=== PATIENT | male | born 1950 | race African-American/Black ===

== ENCOUNTER 2019-08-17 16:46 | Inpatient (IN) ==
[2019-08-17] MEDS ORDERED: methylPREDNISolone 125 MG/2 ML VIAL IVP ONE (16:55)
[2019-08-17] MEDS ORDERED: Ipratropium/Albuterol Neb 3 ML IH ONE (16:55)
[2019-08-17] MEDS ORDERED: Isovue-370 500 ML BOTTLE IVP ONE (16:55)
[2019-08-17 17:31] LABS: Basophils # 0.1 K/mcL (0.0-0.2); Basophils % 1.1 %; Eosinophils # 0.7 K/mcL (0.0-0.6); Eosinophils % 9.4 %; Hematocrit 42.4 % (37.5-50.1); Hemoglobin 12.7 g/dL (12.9-16.9); Immature Granulocytes % 0.1 % (0-4); Lymphocytes # 1.6 K/mcL (0.6-4.6); Lymphocytes % 23.4 %; Mean Corpuscular Hemoglobin 29.5 pg (28.0-33.3); Mean Corpuscular Volume 98.6 fL (83.0-100.0); Mean Platelet Volume 10.9 fL (9.4-12.4); Monocytes # 0.6 K/mcL (0.0-1.3); Neutrophils # 4.1 K/mcL (1.6-8.9); Platelet Count 218 K/mcL (140-400); Red Cell Distribution Width 13.2 % (11.5-14.5)
[2019-08-17 17:57] LABS: BUN/Creatinine Ratio 24 (6-26); Blood Urea Nitrogen 17 mg/dL (8-23); Calcium 9.8 mg/dL (8.6-10.3); Carbon Dioxide 30 mEq/L (23-29); Chloride 99 mEq/L (98-107); Glucose 102 mg/dL (70-105); Osmolality,Calculated 292 (280-300); Potassium 4.2 mEq/L (3.5-5.1); Sodium 140 mEq/L (136-145); Troponin I < 0.03 ng/mL (< 0.04); eGFR For African Americans > 60 (> 60); eGFR For Non-African Americans > 60 (> 60)
[2019-08-17] MEDS ORDERED: Albuterol 2.5 MG/3 ML NEBULIZER IH ONE (19:20)
[2019-08-17] MEDS ORDERED: Naloxone 0.4 MG/ML INJ IVP PRN (19:55)
[2019-08-17] MEDS: Doxycycline 100 MG in 0.9 % Sodium Chloride Mini Bag 100 ML IVPB SCH (22:01)
[2019-08-17] MEDS: *HR* Heparin 5,000 UNIT/ML VIAL SQ SCH (22:01)
[2019-08-17] MEDS: traZODone 50 MG TABLET PO SCH (22:02)
[2019-08-17] MEDS: (Lactose-Reduced Food [Ensure Plus] 1 BOTTLE) PO SCH (22:03)
[2019-08-17] MEDS: Ipratropium/Albuterol Neb 3 ML IH SCH (22:21)
[2019-08-17] MEDS: MethylPREDNISolone 40 MG/ML VIAL IVP SCH (23:34)
[2019-08-18] MEDS: Ipratropium/Albuterol Neb 3 ML IH SCH ×7 (00:06→23:47)
[2019-08-18 00:37] LABS: Bilirubin,Urine Negative (Negative); Blood,Urine Negative (Negative); Clarity,Urine Turbid (Clear); Color,Urine Yellow (Yellow); Glucose,Urine (UA) Normal (Normal); Ketones,Urine Negative (Negative); Leukocyte Esterase,Urine Negative (Negative); Nitrite,Urine Negative (Negative); PH,Urine 5.5 pH Units (5.0-8.0); Protein,Urine Negative (Neg-Trace); Specific Gravity,Urine > 1.030 (1.010-1.025); Urobilinogen,Urine Normal (Normal)
[2019-08-18 00:39] LABS: Bacteria,Urine None Seen per hpf (None-Few); Hyaline Casts,Urine None Seen per lpf (None-Few); RBC,Urine 0-3 per hpf (0-3); Squamous Epithelial Cell,Urine Moderate per lpf (None-Few); WBC,Urine 0-3 per hpf (0-3)
[2019-08-18 01:29] LABS: Adenovirus Not Detected (Not Detect); Bordetella Pertussis Not Detected (Not Detect); Chlamydophila pneumoniae Not Detected (Not Detect); Coronavirus 229E Not Detected (Not Detect); Coronavirus HKU1 Not Detected (Not Detect); Coronavirus NL63 Not Detected (Not Detect); Coronavirus OC43 Not Detected (Not Detect); Human Metapneumovirus Not Detected (Not Detect); Human Rhinovirus/Enterovirus Not Detected (Not Detect); Influenza A Subtype 2009 H1 Not Detected (Not Detect); Influenza B Not Detected (Not Detect); Mycoplasma pneumoniae Not Detected (Not Detect); Parainfluenza Virus 1 Not Detected (Not Detect); Parainfluenza Virus 2 Not Detected (Not Detect); Parainfluenza Virus 3 Not Detected (Not Detect); Parainfluenza Virus 4 Not Detected (Not Detect); Respiratory Syncytial Virus Not Detected (Not Detect)
[2019-08-18 04:26] LABS: INR 1.3; Prothrombin Time 14.6 Seconds (9.4-12.1)
[2019-08-18 04:29] LABS: Activated Partial Thrombo Time 33.5 Seconds (26.0-36.0)
[2019-08-18 04:30] LABS: Basophils % 0.2 %; Eosinophils % 0.2 %; Hematocrit 40.6 % (37.5-50.1); Hemoglobin 12.1 g/dL (12.9-16.9); Immature Granulocytes % 0.2 % (0-4); Lymphocytes # 0.5 K/mcL (0.6-4.6); Lymphocytes % 9.5 %; Mean Corpuscular HGB Conc 29.8 g/dL (31.6-35.5); Mean Corpuscular Hemoglobin 29.2 pg (28.0-33.3); Mean Corpuscular Volume 98.1 fL (83.0-100.0); Mean Platelet Volume 11.1 fL (9.4-12.4); Monocytes # 0.1 K/mcL (0.0-1.3); Monocytes % 1.3 %; Neutrophils # 4.7 K/mcL (1.6-8.9); Platelet Count 230 K/mcL (140-400); Red Blood Count 4.14 M/mcL (4.19-5.50); Red Cell Distribution Width 13.1 % (11.5-14.5); Segmented Neutrophils % 88.6 %; White Blood Count 5.3 K/mcL (4.3-11.1)
[2019-08-18 04:49] LABS: Alanine Aminotransferase 9 Units/L (7-52); Albumin 4.2 g/dL (3.5-5.7); Albumin/Globulin Ratio 1.1 (1.1-2.2); Alkaline Phosphatase 55 Units/L (34-104); Aspartate Amino Transferase 13 Units/L (13-39); BUN/Creatinine Ratio 20 (6-26); Bilirubin,Total 0.8 mg/dL (0.3-1.0); Blood Urea Nitrogen 13 mg/dL (8-23); Calcium 9.9 mg/dL (8.6-10.3); Carbon Dioxide 26 mEq/L (23-29); Chloride 100 mEq/L (98-107); Chol/HDL Ratio 2.5 (0-4.9); Cholesterol 147 mg/dL (< 200); Glucose 160 mg/dL (70-105); HDL Cholesterol 58 mg/dL (40-59); LDL Cholesterol,Calculated 83 mg/dL (0-99); Magnesium 1.8 mg/dL (1.6-2.6); Osmolality,Calculated 284 (280-300); Phosphorous 2.6 mg/dL (2.7-4.5); Potassium 4.4 mEq/L (3.5-5.1); Sodium 135 mEq/L (136-145); Total Protein 8.2 g/dL (6.4-8.9); Triglycerides 30 mg/dL (< 150); eGFR For African Americans > 60 (> 60); eGFR For Non-African Americans > 60 (> 60)
[2019-08-18] MEDS: *HR* Heparin 5,000 UNIT/ML VIAL SQ SCH ×3 (06:02→22:27)
[2019-08-18] MEDS: Doxycycline 100 MG in 0.9 % Sodium Chloride Mini Bag 100 ML IVPB SCH ×2 (06:03→16:58)
[2019-08-18] MEDS: Lisinopril-HCTZ 20-12.5mg TABLET PO SCH (07:27)
[2019-08-18] MEDS: Cholecalciferol (D-3) 1,000 UNIT (25MCG) TABLET PO SCH (07:27)
[2019-08-18] MEDS: MethylPREDNISolone 40 MG/ML VIAL IVP SCH ×2 (07:27→16:58)
[2019-08-18] MEDS: (Lactose-Reduced Food [Ensure Plus] 1 BOTTLE) PO SCH ×2 (07:27→14:40)
[2019-08-18] MEDS: Venlafaxine XR (24 HR) 75 MG CAP.ER.24H PO SCH (07:27)
[2019-08-18] MEDS: Benzonatate 100 MG CAPSULE PO PRN (11:26)
[2019-08-18] MEDS: traZODone 50 MG TABLET PO SCH (20:11)
[2019-08-19] MEDS: MethylPREDNISolone 40 MG/ML VIAL IVP SCH ×4 (00:30→23:56)
[2019-08-19] MEDS: Ipratropium/Albuterol Neb 3 ML IH SCH ×3 (03:14→11:24)
[2019-08-19 05:18] LABS: Eosinophils % 0.1 %; Hematocrit 39.9 % (37.5-50.1); Hemoglobin 12.2 g/dL (12.9-16.9); Immature Granulocytes % 0.2 % (0-4); Lymphocytes # 0.5 K/mcL (0.6-4.6); Lymphocytes % 5.7 %; Mean Corpuscular HGB Conc 30.6 g/dL (31.6-35.5); Mean Corpuscular Volume 94.8 fL (83.0-100.0); Mean Platelet Volume 11.8 fL (9.4-12.4); Monocytes # 0.1 K/mcL (0.0-1.3); Monocytes % 0.9 %; Neutrophils # 8.1 K/mcL (1.6-8.9); Platelet Count 233 K/mcL (140-400); Red Blood Count 4.21 M/mcL (4.19-5.50); Red Cell Distribution Width 13.2 % (11.5-14.5); Segmented Neutrophils % 93.1 %; White Blood Count 8.7 K/mcL (4.3-11.1)
[2019-08-19 05:40] LABS: BUN/Creatinine Ratio 27 (6-26); Blood Urea Nitrogen 17 mg/dL (8-23); Calcium 9.8 mg/dL (8.6-10.3); Carbon Dioxide 29 mEq/L (23-29); Chloride 100 mEq/L (98-107); Glucose 193 mg/dL (70-105); Osmolality,Calculated 285 (280-300); Potassium 4.1 mEq/L (3.5-5.1); Sodium 134 mEq/L (136-145); eGFR For African Americans > 60 (> 60); eGFR For Non-African Americans > 60 (> 60)
[2019-08-19] MEDS: Doxycycline 100 MG in 0.9 % Sodium Chloride Mini Bag 100 ML IVPB SCH ×2 (06:05→17:13)
[2019-08-19] MEDS: *HR* Heparin 5,000 UNIT/ML VIAL SQ SCH ×3 (06:05→22:04)
[2019-08-19] MEDS: Budesonide/Formoterol 160/4.5 1 PUFF INH IH SCH ×2 (07:34→20:02)
[2019-08-19] MEDS: Venlafaxine XR (24 HR) 75 MG CAP.ER.24H PO SCH (08:09)
[2019-08-19] MEDS: Cholecalciferol (D-3) 1,000 UNIT (25MCG) TABLET PO SCH (08:09)
[2019-08-19] MEDS: Lisinopril-HCTZ 20-12.5mg TABLET PO SCH (08:09)
[2019-08-19] MEDS: Ipratropium Neb 0.5 MG NEBULIZER IH SCH ×3 (15:29→23:51)
[2019-08-19] MEDS: Levalbuterol Neb 1.25 MG/3 ML IH SCH ×2 (15:29→23:51)
[2019-08-19] MEDS: Benzonatate 100 MG CAPSULE PO PRN (18:22)
[2019-08-19] MEDS: traZODone 50 MG TABLET PO SCH (20:29)
[2019-08-20] MEDS: Levalbuterol Neb 1.25 MG/3 ML IH SCH ×4 (04:05→20:04)
[2019-08-20] MEDS: Ipratropium Neb 0.5 MG NEBULIZER IH SCH ×6 (04:05→23:18)
[2019-08-20] MEDS: *HR* Heparin 5,000 UNIT/ML VIAL SQ SCH ×3 (05:48→23:23)
[2019-08-20] MEDS: Doxycycline 100 MG in 0.9 % Sodium Chloride Mini Bag 100 ML IVPB SCH ×2 (05:49→17:31)
[2019-08-20 05:50] LABS: Hematocrit 40.2 % (37.5-50.1); Hemoglobin 12.1 g/dL (12.9-16.9); Immature Granulocytes % 0.3 % (0-4); Lymphocytes # 0.5 K/mcL (0.6-4.6); Lymphocytes % 7.1 %; Mean Corpuscular HGB Conc 30.1 g/dL (31.6-35.5); Mean Corpuscular Hemoglobin 29.6 pg (28.0-33.3); Mean Corpuscular Volume 98.3 fL (83.0-100.0); Mean Platelet Volume 11.9 fL (9.4-12.4); Monocytes # 0.2 K/mcL (0.0-1.3); Monocytes % 2.7 %; Neutrophils # 5.7 K/mcL (1.6-8.9); Platelet Count 193 K/mcL (140-400); Red Blood Count 4.09 M/mcL (4.19-5.50); Red Cell Distribution Width 13.2 % (11.5-14.5); Segmented Neutrophils % 89.9 %; White Blood Count 6.4 K/mcL (4.3-11.1)
[2019-08-20 06:14] LABS: BUN/Creatinine Ratio 30 (6-26); Blood Urea Nitrogen 18 mg/dL (8-23); Calcium 9.6 mg/dL (8.6-10.3); Carbon Dioxide 31 mEq/L (23-29); Chloride 98 mEq/L (98-107); Glucose 127 mg/dL (70-105); Osmolality,Calculated 291 (280-300); Potassium 4.7 mEq/L (3.5-5.1); Sodium 139 mEq/L (136-145); eGFR For African Americans > 60 (> 60); eGFR For Non-African Americans > 60 (> 60)
[2019-08-20] MEDS: Budesonide/Formoterol 160/4.5 1 PUFF INH IH SCH ×2 (07:49→20:04)
[2019-08-20] MEDS: Lisinopril-HCTZ 20-12.5mg TABLET PO SCH (08:33)
[2019-08-20] MEDS: Cholecalciferol (D-3) 1,000 UNIT (25MCG) TABLET PO SCH (08:33)
[2019-08-20] MEDS: MethylPREDNISolone 40 MG/ML VIAL IVP SCH ×2 (08:33→17:31)
[2019-08-20] MEDS: Venlafaxine XR (24 HR) 75 MG CAP.ER.24H PO SCH (08:33)
[2019-08-20] MEDS: Benzonatate 100 MG CAPSULE PO PRN ×2 (08:39→13:56)
[2019-08-20] MEDS: traZODone 50 MG TABLET PO SCH (23:23)
[2019-08-21] MEDS: Levalbuterol Neb 1.25 MG/3 ML IH SCH ×4 (03:47→19:52)
[2019-08-21] MEDS: Ipratropium Neb 0.5 MG NEBULIZER IH SCH ×6 (03:47→23:37)
[2019-08-21] MEDS: Doxycycline 100 MG in 0.9 % Sodium Chloride Mini Bag 100 ML IVPB SCH (05:10)
[2019-08-21] MEDS: *HR* Heparin 5,000 UNIT/ML VIAL SQ SCH ×3 (05:11→20:24)
[2019-08-21] MEDS: MethylPREDNISolone 40 MG/ML VIAL IVP SCH (05:12)
[2019-08-21 07:16] LABS: Hematocrit 38.9 % (37.5-50.1); Hemoglobin 11.9 g/dL (12.9-16.9); Immature Granulocytes % 0.2 % (0-4); Lymphocytes # 1.4 K/mcL (0.6-4.6); Lymphocytes % 22.3 %; Mean Corpuscular HGB Conc 30.6 g/dL (31.6-35.5); Mean Corpuscular Hemoglobin 29.9 pg (28.0-33.3); Mean Corpuscular Volume 97.7 fL (83.0-100.0); Mean Platelet Volume 11.7 fL (9.4-12.4); Monocytes # 0.5 K/mcL (0.0-1.3); Monocytes % 8.2 %; Neutrophils # 4.5 K/mcL (1.6-8.9); Platelet Count 180 K/mcL (140-400); Red Blood Count 3.98 M/mcL (4.19-5.50); Red Cell Distribution Width 13.2 % (11.5-14.5); Segmented Neutrophils % 69.3 %; White Blood Count 6.5 K/mcL (4.3-11.1)
[2019-08-21 07:35] LABS: BUN/Creatinine Ratio 26 (6-26); Blood Urea Nitrogen 16 mg/dL (8-23); Calcium 9.2 mg/dL (8.6-10.3); Carbon Dioxide 33 mEq/L (23-29); Chloride 99 mEq/L (98-107); Glucose 99 mg/dL (70-105); Osmolality,Calculated 287 (280-300); Potassium 3.7 mEq/L (3.5-5.1); Sodium 138 mEq/L (136-145); eGFR For African Americans > 60 (> 60); eGFR For Non-African Americans > 60 (> 60)
[2019-08-21] MEDS: Budesonide/Formoterol 160/4.5 1 PUFF INH IH SCH ×2 (07:37→19:52)
[2019-08-21] MEDS: Cholecalciferol (D-3) 1,000 UNIT (25MCG) TABLET PO SCH (08:19)
[2019-08-21] MEDS: Lisinopril-HCTZ 20-12.5mg TABLET PO SCH (08:19)
[2019-08-21] MEDS: Venlafaxine XR (24 HR) 75 MG CAP.ER.24H PO SCH (08:19)
[2019-08-21] MEDS: Benzonatate 100 MG CAPSULE PO PRN (08:22)
[2019-08-21] MEDS: Doxycycline 100 MG CAPSULE PO SCH (20:24)
[2019-08-21] MEDS: traZODone 50 MG TABLET PO SCH (20:24)
[2019-08-22] MEDS: Ipratropium Neb 0.5 MG NEBULIZER IH SCH ×5 (03:50→21:24)
[2019-08-22] MEDS: Levalbuterol Neb 1.25 MG/3 ML IH SCH ×4 (03:50→21:24)
[2019-08-22] MEDS: *HR* Heparin 5,000 UNIT/ML VIAL SQ SCH ×3 (06:02→21:16)
[2019-08-22] MEDS: Budesonide/Formoterol 160/4.5 1 PUFF INH IH SCH ×2 (07:37→21:24)
[2019-08-22] MEDS: Doxycycline 100 MG CAPSULE PO SCH ×2 (09:19→21:15)
[2019-08-22] MEDS: Cholecalciferol (D-3) 1,000 UNIT (25MCG) TABLET PO SCH (09:19)
[2019-08-22] MEDS: predniSONE 20 MG TABLET PO SCH (09:19)
[2019-08-22] MEDS: Venlafaxine XR (24 HR) 75 MG CAP.ER.24H PO SCH (09:19)
[2019-08-22] MEDS: Lisinopril-HCTZ 20-12.5mg TABLET PO SCH (09:29)
[2019-08-22] MEDS: traZODone 50 MG TABLET PO SCH (21:15)
[2019-08-23] MEDS: Ipratropium Neb 0.5 MG NEBULIZER IH SCH ×3 (04:19→15:50)
[2019-08-23] MEDS: Levalbuterol Neb 1.25 MG/3 ML IH SCH ×3 (04:19→15:50)
[2019-08-23] MEDS: *HR* Heparin 5,000 UNIT/ML VIAL SQ SCH ×2 (05:52→17:44)
[2019-08-23] MEDS: Lisinopril-HCTZ 20-12.5mg TABLET PO SCH (08:53)
[2019-08-23] MEDS: predniSONE 20 MG TABLET PO SCH (08:53)
[2019-08-23] MEDS: Venlafaxine XR (24 HR) 75 MG CAP.ER.24H PO SCH (08:53)
[2019-08-23] MEDS: Cholecalciferol (D-3) 1,000 UNIT (25MCG) TABLET PO SCH (08:53)
[2019-08-23] MEDS: Doxycycline 100 MG CAPSULE PO SCH (08:53)
[2019-08-23] MEDS: Budesonide/Formoterol 160/4.5 1 PUFF INH IH SCH (09:52)
[2019-08-23 11:16] VITALS: BP 146/83
[2019-08-23] MEDS ORDERED: Budesonide/Formoterol 160/4.5 1 PUFF INH IH SCH (21:00)
== END 2019-08-23 19:00 | disposition home or self-care (01) | DRG 190 ==
LOC: 3BNU 16:46 → EMEROOARM 16:46 → SUATTDRO 20:14 → 3BNU 20:38 → SUATTDRO 08-18 18:51
PROVIDERS: ADMIT Student in an Organized Health Care Education/Training Program; ATTEND Internal Medicine

== ENCOUNTER 2022-04-12 15:49 | Observation (INO) ==
[2022-04-12] MEDS ORDERED: Iopamidol - 370 500 ML MLS IVP ONE (16:32)
[2022-04-12 16:56] LABS: Basophils % 0.6 %; Eosinophils # 0.1 K/mcL (0.0-0.6); Eosinophils % 2.5 %; Hematocrit 41.2 % (37.5-50.1); Hemoglobin 12.5 g/dL (12.9-16.9); Immature Granulocytes % 0.2 % (0-4); Lymphocytes # 0.7 K/mcL (0.6-4.6); Lymphocytes % 13.7 %; Mean Corpuscular HGB Conc 30.3 g/dL (31.6-35.5); Mean Corpuscular Hemoglobin 30.2 pg (28.0-33.3); Mean Corpuscular Volume 99.5 fL (83.0-100.0); Mean Platelet Volume 10.7 fL (9.4-12.4); Monocytes # 0.5 K/mcL (0.0-1.3); Monocytes % 9.4 %; Neutrophils # 3.8 K/mcL (1.6-8.9); Platelet Count 141 K/mcL (140-400); Red Blood Count 4.14 M/mcL (4.19-5.50); Red Cell Distribution Width 13.3 % (11.5-14.5); Segmented Neutrophils % 73.6 %; White Blood Count 5.2 K/mcL (4.3-11.1)
[2022-04-12 17:18] LABS: BUN/Creatinine Ratio 23 (6-26); Blood Urea Nitrogen 16 mg/dL (8-23); Calcium 8.9 mg/dL (8.6-10.3); Carbon Dioxide 28 mEq/L (23-29); Chloride 104 mEq/L (98-107); Glucose 87 mg/dL (70-105); Magnesium 1.7 mg/dL (1.6-2.6); Osmolality,Calculated 285 (280-300); Potassium 3.9 mEq/L (3.5-5.1); Sodium 137 mEq/L (136-145)
[2022-04-12 17:19] LABS: Troponin I < 0.03 ng/mL (< 0.04)
[2022-04-12] MEDS ORDERED: Doxycycline 100 MG CAPSULE PO ONE (20:02)
[2022-04-12] MEDS ORDERED: predniSONE 20 MG TABLET PO ONE (20:03)
[2022-04-12] MEDS ORDERED: levoFLOXacin 500 MG TABLET PO ONE (20:30)
[2022-04-12] MEDS ORDERED: Ondansetron 4 MG/2 ML VIAL IVP PRN (21:09)
[2022-04-12] MEDS ORDERED: Acetaminophen 325 MG TABLET PO PRN (21:09)
[2022-04-12] MEDS ORDERED: Melatonin 3 MG TABLET PO PRN (21:09)
[2022-04-12] MEDS ORDERED: Naloxone 0.4 MG/ML INJ IVP PRN (21:09)
[2022-04-13] MEDS: Ipratropium/Albuterol Neb 3 ML IH SCH ×3 (01:20→07:24)
[2022-04-13] MEDS: Budesonide/Formoterol 160/4.5 1 PUFF INH IH SCH ×2 (01:20→07:22)
[2022-04-13 03:38] LABS: Adenovirus Not Detected (Not Detect); Bordetella Pertussis Not Detected (Not Detect); Chlamydophila pneumoniae Not Detected (Not Detect); Coronavirus 229E Not Detected (Not Detect); Coronavirus HKU1 Not Detected (Not Detect); Coronavirus NL63 Not Detected (Not Detect); Coronavirus OC43 Not Detected (Not Detect); Human Metapneumovirus Not Detected (Not Detect); Human Rhinovirus/Enterovirus Not Detected (Not Detect); Influenza A Subtype 2009 H1 Not Detected (Not Detect); Influenza B Not Detected (Not Detect); Mycoplasma pneumoniae Not Detected (Not Detect); Parainfluenza Virus 1 Not Detected (Not Detect); Parainfluenza Virus 2 Not Detected (Not Detect); Parainfluenza Virus 3 Not Detected (Not Detect); Parainfluenza Virus 4 Not Detected (Not Detect); Respiratory Syncytial Virus Not Detected (Not Detect); SARS-CoV-2 Not Detected (Not Detect)
[2022-04-13] MEDS: Acetylcysteine 10% 2 ML INHSOL IH SCH ×2 (04:26→07:23)
[2022-04-13] MEDS ORDERED: *HR* Enoxaparin 40 MG/0.4 ML SYRINGE SQ SCH (06:00)
[2022-04-13 06:34] LABS: Basophils % 0.2 %; Hematocrit 44.8 % (37.5-50.1); Hemoglobin 13.8 g/dL (12.9-16.9); Immature Granulocytes % 0.2 % (0-4); Lymphocytes # 0.3 K/mcL (0.6-4.6); Lymphocytes % 5.8 %; Mean Corpuscular HGB Conc 30.8 g/dL (31.6-35.5); Mean Corpuscular Hemoglobin 30.4 pg (28.0-33.3); Mean Corpuscular Volume 98.7 fL (83.0-100.0); Mean Platelet Volume 10.8 fL (9.4-12.4); Monocytes # 0.1 K/mcL (0.0-1.3); Monocytes % 2.1 %; Neutrophils # 3.9 K/mcL (1.6-8.9); Platelet Count 168 K/mcL (140-400); Red Blood Count 4.54 M/mcL (4.19-5.50); Red Cell Distribution Width 13.2 % (11.5-14.5); Segmented Neutrophils % 91.7 %; White Blood Count 4.3 K/mcL (4.3-11.1)
[2022-04-13 06:40] LABS: INR 1.3; Prothrombin Time 14.6 Seconds (9.4-12.1)
[2022-04-13 06:52] LABS: Alanine Aminotransferase 9 Units/L (7-52); Albumin 4.1 g/dL (3.5-5.7); Albumin/Globulin Ratio 1.4 (1.1-2.2); Alkaline Phosphatase 47 Units/L (34-104); Aspartate Amino Transferase 12 Units/L (13-39); BUN/Creatinine Ratio 19 (6-26); Blood Urea Nitrogen 14 mg/dL (8-23); Calcium 9.5 mg/dL (8.6-10.3); Carbon Dioxide 29 mEq/L (23-29); Chloride 101 mEq/L (98-107); Glucose 141 mg/dL (70-105); Magnesium 1.8 mg/dL (1.6-2.6); Osmolality,Calculated 285 (280-300); Phosphorous 3.7 mg/dL (2.7-4.5); Potassium 4.5 mEq/L (3.5-5.1); Sodium 136 mEq/L (136-145); Total Protein 7.1 g/dL (6.4-8.9)
[2022-04-13 06:59] LABS: % Iron Saturation 28 % (20-55); Iron 99 mcg/dL (65-175); Transferrin 254 mg/dL (203-362)
[2022-04-13 07:07] LABS: Ferritin 57 ng/mL (20-250)
[2022-04-13 07:13] LABS: Folate > 22.3 ng/mL (3.0-16.0); Vitamin B12 1017 pg/mL (250-1100)
[2022-04-13] MEDS ORDERED: Nicotine 21 MG PATCH.TD24 TD SCH (09:00)
[2022-04-13] MEDS ORDERED: predniSONE 20 MG TABLET PO SCH (09:00)
[2022-04-13] MEDS ORDERED: levoFLOXacin 750 MG/150 ML 750 MG/150 ML BAG IVPB SCH (09:00)
[2022-04-13] MEDS ORDERED: Lactobacillus 1 EACH CAP.SPRINK PO SCH (09:00)
[2022-04-13] MEDS ORDERED: Chlorhexidine Rinse 15 ML MOUTHWASH MM SCH (09:00)
[2022-04-13 09:13] VITALS: BP 108/64; PULSE 98; TEMP 98.6
[2022-04-13 09:24] VITALS: O2SAT 93
== END 2022-04-13 10:28 | disposition home or self-care (01) ==
LOC: EMEROOARM 15:49 → 2ANU 15:49 → SUATTDRO 20:34 → 2ANU 21:15
PROVIDERS: ADMIT Internal Medicine; ATTEND Internal Medicine

== ENCOUNTER 2022-04-26 15:33 | Inpatient (IN) ==
[2022-04-26 19:01] LABS: ABG Base Excess 1 mEq/L (-2 to 3); ABG HCO3 28 mEq/L (21-27); ABG Oxygen Saturation 93 % (95-98); ABG PCO2 51 mmHg (35-45); ABG PH 7.34 pH Units (7.32-7.45); ABG PO2 73 mmHg (85-104); ABG TCO2 29 mEq/L (20-26)
[2022-04-26] MEDS ORDERED: Ipratropium/Albuterol Neb 3 ML IH ONE (19:22)
[2022-04-26] MEDS ORDERED: methylPREDNISolone 125 MG/2 ML VIAL IVP ONE (19:23)
[2022-04-26 19:39] LABS: Basophils % 0.1 %; Hematocrit 39.3 % (37.5-50.1); Immature Granulocytes % 0.4 % (0-4); Lymphocytes # 0.3 K/mcL (0.6-4.6); Lymphocytes % 4.4 %; Mean Corpuscular HGB Conc 30.5 g/dL (31.6-35.5); Mean Corpuscular Hemoglobin 30.8 pg (28.0-33.3); Mean Corpuscular Volume 100.8 fL (83.0-100.0); Mean Platelet Volume 11.4 fL (9.4-12.4); Monocytes # 0.3 K/mcL (0.0-1.3); Monocytes % 4.1 %; Neutrophils # 6.2 K/mcL (1.6-8.9); Platelet Count 148 K/mcL (140-400); Red Cell Distribution Width 12.9 % (11.5-14.5); White Blood Count 6.9 K/mcL (4.3-11.1)
[2022-04-26 19:46] LABS: INR 1.3; Prothrombin Time 14.8 Seconds (9.4-12.1)
[2022-04-26 19:49] LABS: Activated Partial Thrombo Time 32.7 Seconds (26.0-36.0)
[2022-04-26 19:59] LABS: Alanine Aminotransferase 9 Units/L (7-52); Albumin 4.1 g/dL (3.5-5.7); Albumin/Globulin Ratio 1.4 (1.1-2.2); Alkaline Phosphatase 53 Units/L (34-104); Aspartate Amino Transferase 11 Units/L (13-39); BUN/Creatinine Ratio 22 (6-26); Bilirubin,Direct 0.1 mg/dL (0.0-0.2); Bilirubin,Indirect 0.5 mg/dL (0.0-1.0); Bilirubin,Total 0.6 mg/dL (0.3-1.0); Blood Urea Nitrogen 15 mg/dL (8-23); Calcium 9.3 mg/dL (8.6-10.3); Carbon Dioxide 29 mEq/L (23-29); Chloride 101 mEq/L (98-107); Glucose 161 mg/dL (70-105); Osmolality,Calculated 288 (280-300); Sodium 137 mEq/L (136-145); Total Protein 7.1 g/dL (6.4-8.9); Troponin I < 0.03 ng/mL (< 0.04)
[2022-04-26 20:44] LABS: Influenza A PCR Negative (Negative); Influenza B PCR Negative (Negative); Resp. Syncytial Virus PCR Negative (Negative)
[2022-04-26 20:46] LABS: SARS-CoV-2 by PCR (In House) Negative (Negative)
[2022-04-26] MEDS ORDERED: Albuterol 2.5 MG/3 ML NEBULIZER IH ONE (22:08)
[2022-04-26] MEDS ORDERED: cefTRIAXone 1,000 MG in 0.9 % Sodium Chloride Mini Bag 100 ML IVPB ONE (22:08)
[2022-04-26] MEDS ORDERED: Azithromycin 500 MG in 0.9 % Sodium Chloride 250 ML IVPB ONE ×2 (22:08→23:26)
[2022-04-26] MEDS ORDERED: Iopamidol - 370 500 ML MLS IVP ONE (22:33)
[2022-04-26] MEDS ORDERED: Naloxone 0.4 MG/ML INJ IVP PRN (23:18)
[2022-04-26] MEDS ORDERED: Ondansetron ODT 4 MG TAB.RAPDIS SL PRN (23:18)
[2022-04-27] MEDS: GuaiFENesin/Pseudophedrine TABLET PO SCH ×3 (01:14→21:12)
[2022-04-27 03:45] LABS: Hematocrit 38.4 % (37.5-50.1); Hemoglobin 11.6 g/dL (12.9-16.9); Mean Corpuscular HGB Conc 30.2 g/dL (31.6-35.5); Mean Corpuscular Hemoglobin 30.6 pg (28.0-33.3); Mean Corpuscular Volume 101.3 fL (83.0-100.0); Mean Platelet Volume 11.4 fL (9.4-12.4); Platelet Count 154 K/mcL (140-400); Red Blood Count 3.79 M/mcL (4.19-5.50); Red Cell Distribution Width 12.5 % (11.5-14.5); White Blood Count 6.5 K/mcL (4.3-11.1)
[2022-04-27] MEDS: Ipratropium/Albuterol Neb 3 ML IH SCH ×4 (03:50→19:53)
[2022-04-27 04:00] LABS: BUN/Creatinine Ratio 19 (6-26); Blood Urea Nitrogen 14 mg/dL (8-23); Calcium 9.2 mg/dL (8.6-10.3); Carbon Dioxide 28 mEq/L (23-29); Chloride 103 mEq/L (98-107); Glucose 131 mg/dL (70-105); Magnesium 1.8 mg/dL (1.6-2.6); Osmolality,Calculated 288 (280-300); Phosphorous 3.4 mg/dL (2.7-4.5); Potassium 4.5 mEq/L (3.5-5.1); Sodium 138 mEq/L (136-145)
[2022-04-27] MEDS: *HR* Enoxaparin 40 MG/0.4 ML SYRINGE SQ SCH (06:27)
[2022-04-27] MEDS ORDERED: predniSONE 20 MG TABLET PO SCH (09:00)
[2022-04-27] MEDS: Acetylcysteine 10% 2 ML INHSOL IH SCH ×3 (09:11→19:53)
[2022-04-27] MEDS: Budesonide/Formoterol 160/4.5 1 PUFF INH IH SCH ×2 (09:11→19:51)
[2022-04-27] MEDS ORDERED: Tiotropium 10 INH DOSE IH SCH (10:00)
[2022-04-27] MEDS: Chlorhexidine Rinse 15 ML MOUTHWASH MM SCH ×2 (10:37→21:12)
[2022-04-27] MEDS: methylPREDNISolone 125 MG/2 ML VIAL IVP SCH ×3 (10:37→23:20)
[2022-04-27] MEDS: traZODone 50 MG TABLET PO PRN (23:21)
[2022-04-27] MEDS: Gabapentin 300 MG CAPSULE PO SCH (23:21)
[2022-04-27] MEDS: Venlafaxine XR (24 HR) 75 MG CAP.ER.24H PO SCH (23:21)
[2022-04-28] MEDS: Ipratropium/Albuterol Neb 3 ML IH SCH ×4 (03:40→22:41)
[2022-04-28] MEDS: Acetylcysteine 10% 2 ML INHSOL IH SCH ×4 (03:40→22:39)
[2022-04-28] MEDS: *HR* Enoxaparin 40 MG/0.4 ML SYRINGE SQ SCH (05:27)
[2022-04-28] MEDS ORDERED: Lidocaine 5% OINT 35 APPL/35.44 GM TUBE TP PRN (08:20)
[2022-04-28] MEDS ORDERED: Artificial Tears SOLN 15 ML BOTTLE BOTH EYES PRN (08:20)
[2022-04-28] MEDS: methylPREDNISolone 125 MG/2 ML VIAL IVP SCH ×3 (08:47→23:48)
[2022-04-28] MEDS: Nicotine 21 MG PATCH.TD24 TD SCH (08:48)
[2022-04-28] MEDS: Chlorhexidine Rinse 15 ML MOUTHWASH MM SCH ×2 (08:48→21:33)
[2022-04-28] MEDS: Venlafaxine XR (24 HR) 75 MG CAP.ER.24H PO SCH (08:49)
[2022-04-28] MEDS: Cyanocobalamin (B-12) 1,000 MCG TABLET PO SCH (08:49)
[2022-04-28] MEDS: Aspirin Enteric Coated 81 MG Tablet PO SCH (08:49)
[2022-04-28] MEDS: Cholecalciferol (D-3) 1,000 UNIT (25MCG) TABLET PO SCH (08:49)
[2022-04-28] MEDS: GuaiFENesin/Pseudophedrine TABLET PO SCH ×2 (08:49→21:33)
[2022-04-28] MEDS: amLODIPine 5 MG TABLET PO SCH (08:49)
[2022-04-28] MEDS: lisinopriL 10 MG TABLET PO SCH (08:49)
[2022-04-28] MEDS: Gabapentin 300 MG CAPSULE PO SCH ×3 (08:50→21:32)
[2022-04-28] MEDS: Azithromycin 250 MG TABLET PO SCH (08:50)
[2022-04-28] MEDS ORDERED: NON-FORMULARY MEDICATION 1 EACH EACH (Mometasone/Formoterol [Dulera 200 Mcg-5 Mcg Inhaler] IH SCH (09:00)
[2022-04-28] MEDS ORDERED: NON-FORMULARY MEDICATION 1 EACH EACH (Gabapentin [Neurontin] 600 MG Tablet) PO SCH (09:00)
[2022-04-28] MEDS: Budesonide/Formoterol 160/4.5 1 PUFF INH IH SCH ×2 (10:12→22:39)
[2022-04-28 13:31] LABS: A.calcoaceticus-baumannii cplx Not Detected (Not Detect); Bacteroides fragilis by PCR Not Detected (Not Detect); Candida albicans by PCR Not Detected (Not Detect); Candida auris by PCR Not Detected (Not Detect); Candida glabrata by PCR Not Detected (Not Detect); Candida krusei by PCR Not Detected (Not Detect); Candida parapsilosis by PCR Not Detected (Not Detect); Candida tropicalis by PCR Not Detected (Not Detect); Crypto. neoformans/gattii PCR Not Detected (Not Detect); Enterobacter cloacae Cmplx PCR Not Detected (Not Detect); Enterobacterales by PCR Not Detected (Not Detect); Enterococcus faecalis by PCR Not Detected (Not Detect); Enterococcus faecium by PCR Not Detected (Not Detect); Escherichia coli by PCR Not Detected (Not Detect); Klebs. pneumoniae group by PCR Not Detected (Not Detect); Klebsiella aerogenes by PCR Not Detected (Not Detect); Klebsiella oxytoca by PCR Not Detected (Not Detect); Proteus by PCR Not Detected (Not Detect); Pseudomonas aeruginosa by PCR Not Detected (Not Detect); Salmonella species by PCR Not Detected (Not Detect); Serratia marcescens by PCR Not Detected (Not Detect); Staph epidermidis by PCR Not Detected (Not Detect); Staph lugdunensis by PCR Not Detected (Not Detect); Staphylococcus aureus by PCR Not Detected (Not Detect); Staphylococcus by PCR Not Detected (Not Detect); Stenotrophomonas maltophilia Not Detected (Not Detect); Streptococcus agalactiae(B)PCR Not Detected (Not Detect); Streptococcus by PCR Not Detected (Not Detect); Streptococcus pneumoniae PCR Not Detected (Not Detect); Streptococcus pyogenes (A) PCR Not Detected (Not Detect); vanA/B Vancomycin-Resist Genes Not Detected (Not Detect)
[2022-04-28] MEDS: traZODone 50 MG TABLET PO PRN (21:33)
[2022-04-28] MEDS: Melatonin 3 MG TABLET PO PRN (21:33)
[2022-04-29] MEDS: Ipratropium/Albuterol Neb 3 ML IH SCH ×4 (03:28→22:49)
[2022-04-29] MEDS: Acetylcysteine 10% 2 ML INHSOL IH SCH ×4 (03:28→22:52)
[2022-04-29] MEDS: *HR* Enoxaparin 40 MG/0.4 ML SYRINGE SQ SCH (05:49)
[2022-04-29] MEDS: Nicotine 21 MG PATCH.TD24 TD SCH (09:08)
[2022-04-29] MEDS: Cyanocobalamin (B-12) 1,000 MCG TABLET PO SCH (09:09)
[2022-04-29] MEDS: GuaiFENesin/Pseudophedrine TABLET PO SCH ×2 (09:10→20:09)
[2022-04-29] MEDS: lisinopriL 10 MG TABLET PO SCH (09:10)
[2022-04-29] MEDS: Cholecalciferol (D-3) 1,000 UNIT (25MCG) TABLET PO SCH (09:10)
[2022-04-29] MEDS: Aspirin Enteric Coated 81 MG Tablet PO SCH (09:10)
[2022-04-29] MEDS: Azithromycin 250 MG TABLET PO SCH (09:10)
[2022-04-29] MEDS: Venlafaxine XR (24 HR) 75 MG CAP.ER.24H PO SCH (09:10)
[2022-04-29] MEDS: Gabapentin 300 MG CAPSULE PO SCH ×3 (09:11→20:09)
[2022-04-29] MEDS: amLODIPine 5 MG TABLET PO SCH (09:11)
[2022-04-29] MEDS: Chlorhexidine Rinse 15 ML MOUTHWASH MM SCH ×2 (09:11→20:09)
[2022-04-29] MEDS: methylPREDNISolone 125 MG/2 ML VIAL IVP SCH ×3 (09:11→23:58)
[2022-04-29] MEDS: Budesonide/Formoterol 160/4.5 1 PUFF INH IH SCH ×2 (09:55→22:50)
[2022-04-29] MEDS: traZODone 50 MG TABLET PO PRN (20:19)
[2022-04-29] MEDS: Melatonin 3 MG TABLET PO PRN (20:19)
[2022-04-30] MEDS: Acetylcysteine 10% 2 ML INHSOL IH SCH ×4 (03:39→22:12)
[2022-04-30] MEDS: Ipratropium/Albuterol Neb 3 ML IH SCH ×4 (03:39→22:11)
[2022-04-30] MEDS: *HR* Enoxaparin 40 MG/0.4 ML SYRINGE SQ SCH (05:34)
[2022-04-30] MEDS: Azithromycin 250 MG TABLET PO SCH (08:55)
[2022-04-30] MEDS: Cholecalciferol (D-3) 1,000 UNIT (25MCG) TABLET PO SCH (08:55)
[2022-04-30] MEDS: Cyanocobalamin (B-12) 1,000 MCG TABLET PO SCH (08:55)
[2022-04-30] MEDS: lisinopriL 10 MG TABLET PO SCH (08:56)
[2022-04-30] MEDS: Venlafaxine XR (24 HR) 75 MG CAP.ER.24H PO SCH (08:56)
[2022-04-30] MEDS: amLODIPine 5 MG TABLET PO SCH (08:56)
[2022-04-30] MEDS: Aspirin Enteric Coated 81 MG Tablet PO SCH (08:56)
[2022-04-30] MEDS: GuaiFENesin/Pseudophedrine TABLET PO SCH ×2 (08:57→20:57)
[2022-04-30] MEDS: Gabapentin 300 MG CAPSULE PO SCH ×3 (08:57→21:04)
[2022-04-30] MEDS: methylPREDNISolone 125 MG/2 ML VIAL IVP SCH ×3 (08:58→23:49)
[2022-04-30] MEDS: Chlorhexidine Rinse 15 ML MOUTHWASH MM SCH ×2 (08:59→21:03)
[2022-04-30] MEDS: Nicotine 21 MG PATCH.TD24 TD SCH (08:59)
[2022-04-30] MEDS: Budesonide/Formoterol 160/4.5 1 PUFF INH IH SCH ×2 (09:58→22:22)
[2022-04-30] MEDS: traZODone 50 MG TABLET PO PRN (21:12)
[2022-04-30] MEDS: Melatonin 3 MG TABLET PO PRN (21:12)
[2022-05-01] MEDS: Acetylcysteine 10% 2 ML INHSOL IH SCH ×3 (03:50→15:23)
[2022-05-01] MEDS: Ipratropium/Albuterol Neb 3 ML IH SCH ×3 (03:50→15:23)
[2022-05-01] MEDS: *HR* Enoxaparin 40 MG/0.4 ML SYRINGE SQ SCH (05:04)
[2022-05-01] MEDS: Cholecalciferol (D-3) 1,000 UNIT (25MCG) TABLET PO SCH (08:46)
[2022-05-01] MEDS: Gabapentin 300 MG CAPSULE PO SCH ×2 (08:46→16:29)
[2022-05-01] MEDS: lisinopriL 10 MG TABLET PO SCH (08:46)
[2022-05-01] MEDS: GuaiFENesin/Pseudophedrine TABLET PO SCH (08:46)
[2022-05-01] MEDS: Venlafaxine XR (24 HR) 75 MG CAP.ER.24H PO SCH (08:46)
[2022-05-01] MEDS: Cyanocobalamin (B-12) 1,000 MCG TABLET PO SCH (08:47)
[2022-05-01] MEDS: Aspirin Enteric Coated 81 MG Tablet PO SCH (08:47)
[2022-05-01] MEDS: Azithromycin 250 MG TABLET PO SCH (08:47)
[2022-05-01] MEDS: amLODIPine 5 MG TABLET PO SCH (08:47)
[2022-05-01] MEDS: Chlorhexidine Rinse 15 ML MOUTHWASH MM SCH (08:49)
[2022-05-01] MEDS: methylPREDNISolone 125 MG/2 ML VIAL IVP SCH ×2 (08:50→16:29)
[2022-05-01] MEDS: Nicotine 21 MG PATCH.TD24 TD SCH (08:50)
[2022-05-01] MEDS: Budesonide/Formoterol 160/4.5 1 PUFF INH IH SCH (10:02)
[2022-05-01 11:38] VITALS: BP 103/67; PULSE 98; TEMP 97.9
[2022-05-01 15:33] VITALS: O2SAT 94
[2022-05-01] MEDS ORDERED: Nystatin SUSP 5 ML UD.LIQ PO SCH (16:00)
== END 2022-05-01 16:57 | disposition home health service (06) | DRG 190 ==
LOC: EMEROOARM 15:33 → 2ANU 15:33 → SUATTDRO 23:30 → 2ANU 04-27 00:34
PROVIDERS: ADMIT Internal Medicine; ATTEND Internal Medicine